=== PATIENT | male | born 1950 | race Caucasian/White ===

== ENCOUNTER 2021-01-13 10:38 | Inpatient (IN) | payer OTHER ==
[~2021-01-13] VITALS: Ht 190.5 cm; Wt 108.4 kg
[2021-01-13 10:40] VITALS: BP 117/60
[2021-01-13 11:12] LABS: ABSOLUTE NEUTROPHILS 7.5 thou/uL (1.4-8.2); BASOPHILS 0.7 % (0.0-2.0); EOSINOPHILS 0.8 % (0.0-3.0); HEMATOCRIT 44.4 % (42.0-52.0); HEMOGLOBIN 14.7 gm/dL (14.0-18.0); LYMPHOCYTES 29.8 % (24.0-44.0); MCHC 33.1 g/dL (28.0-37.0); MCV 87.5 fL (80.0-100.0); MONOCYTES 6.9 % (1.0-8.0); PLATELET COUNT 325 thou/uL (150-400); POLYS 61.8 % (36.0-66.0); RBC 5.07 mil/uL (4.50-6.00); RDW 13.3 % (10.5-14.5); WBC 12.1 thou/uL (4.0-11.0)
[2021-01-13 11:20] LABS: ANION GAP 15 mmol/L (7-16); BUN 20 mg/dL (7-18); CALCIUM 8.9 mg/dL (8.5-10.1); CHLORIDE 99 mmol/L (98-107); CO2 22 mmol/L (21-32); CREATININE 1.2 mg/dL (0.7-1.3); GLUCOSE 163 mg/dL (74-106); POTASSIUM 3.3 mmol/L (3.5-5.1); SODIUM 136 mmol/L (136-145)
[2021-01-13 11:30] LABS: MAGNESIUM 2.1 mg/dL (1.8-2.4); SGOT 16 U/L (15-37); SGPT 22 U/L (16-63); TOTAL BILIRUBIN 0.7 mg/dL (0.2-1.0); TOTAL PROTEIN 7.5 g/dL (6.4-8.2); TROPONIN-I <0.06 ng/mL (<0.06)
--- NOTE | 2021-01-13 11:47 | NUR ---
ASHLEY [id number] SON-JENNA SON-SIDNEY SON-ALEXX
[2021-01-13] MEDS ORDERED: PROTANDUM PO (12:33)
[2021-01-13] MEDS ORDERED: VITAMIN C1000 MG PO (12:34)
[2021-01-13] MEDS ORDERED: VITAMIN D31250 MCG PO (12:34)
[2021-01-13] MEDS ORDERED: ELDERBERRY-VIT1 EACH PO (12:35)
--- NOTE | 2021-01-13 13:09 | EKG ---
[address] [place] [address] ELECTROCARDIOGRAM REPORT Name: EVY MEYER Room #: 170-11 ADM IN M.R.#: [id number] Admission: 01/13/21 Attend Phys: Santosh Bowers MD Discharge: Date of : 54 Report #: [id number] [facility] ED Test Date: 2021-01-13 Test Time: 10:47:19 Pat Name: EVY MEYER Department: Room: 170 Gender: M Agent Ticketing Gate: : 1950 Requested By: Joseph Gregory Order Number: [id number] MD: Jared Croft Measurements Intervals Bruin Rate: 47 P: -37 GA: 214 QRS: -41 QRSD: 113 T: 82 QT: 464 QTc: 411 Interpretive Statements Sinus bradycardia Borderline IVCD with LAD No previous ECG available for comparison Electronically Signed On 01-13-2021 13:08:55 CDT by Jared Croft [email or web address] <ELECTRONICALLY SIGNED> By: Jared Croft MD 01/13/21 1308 [id number] MD BALWINDER Bahena
[2021-01-13 14:00] VITALS: BP 130/74
[2021-01-13 15:00] VITALS: BP 129/77
[2021-01-13 15:20] VITALS: BP 118/76
--- NOTE | 2021-01-13 15:42 | 2DMMODE ---
[facility] [address] [place] [address] 2 D/M-MODE ECHOCARDIOGRAM Name: EVY MEYER Room #: 361-P ADM IN M.R.#: [id number] Admission: 01/13/21 Attend Phys: Santosh Bowers MD Discharge: Date of : 54 Report #: [id number] THIS REPORT FOR: cc: FAM - No family physician/PCP FAM - No family physician/PCP Fabien Sanchez MD ~ APPROVED REPORT Study performed: 01/13/2021 13:22:09 EXAM: Comprehensive 2D, Doppler, and color-flow Echocardiogram Patient Location: ER Status: routine BSA: 2.35 HR: 50 bpm BP: 122/75 mmHg Rhythm: Sinus Erich Other Information Study Quality: Good Indications Bradycardia Syncope 2D Dimensions RVDd: 32.88 mm IVSd: 10.70 (7-11mm) LVOT Diam: 22.08 (18-24mm) LVDd: 55.86 mm PWd: 11.19 (7-11mm) Ascending Ao: 38.11 (22-36mm) LVDs: 37.72 (25-40mm) Left Atrium: 40.13 (27-40mm) Aortic Root: 36.41 mm Volumes Left Atrial Volume (Systole) Single Plane 4CH: 63.53 mL Single Plane 2CH: 68.17 mL LA ESV Index: 29.00 mL/m2 Aortic Valve AoV Peak Prem.: 1.39 m/s AO Peak Gr.: 7.72 mmHg LVOT Max P.41 mmHg LVOT Max V: 1.27 m/s [facility] [address] [place] [address] 2 D/M-MODE ECHOCARDIOGRAM Name: EVY MEYER Room #: 361-P [facility] IN [facility]#: [id number] Admission: 01/13/21 Attend Phys: Santosh Bowers, Discharge: Date of : 54 Report #: [id number] KASHMIR Vmax: 3.49 cm2 Mitral Valve E/A Ratio: 1.2 MV Decel. Time: 234.45 ms MV E Max Prem.: 0.65 m/s MV A Prem.: 0.55 m/s MV PHT: 67.99 ms IVRT: 87.66 ms Pulmonary Valve PV Peak Prem.: 1.13 m/s PV Peak Gr.: 5.13 mmHg Pulmonary Vein P Vein S: 0.60 m/s P Vein A: 0.29 m/s P Vein D: 0.34 m/s P Vein A Dur.: 115.3 msec P Vein S/D Ratio: 1.76 Tricuspid Valve TR Peak Prem.: 2.17 m/s RAP Estimate: 5.00 mmHg TR Peak Gr.: 19.00 mmHg PA Pressure: 24.00 mmHg Left Ventricle The left ventricle is normal size. There is normal LV segmental wall motion. There is normal left ventricular wall thickness. Left ventricular systolic function is normal. LVEF is 55-60%. The left ventricular diastolic function is normal. Right Ventricle The right ventricle is normal size. The right ventricular systolic function is normal. Atria The left atrium size is normal. The right atrium size is normal. Aortic Valve The aortic valve is normal in structure. No aortic regurgitation is present. There is no aortic valvular stenosis. Mitral Valve The mitral valve is normal in structure. Trace mitral regurgitation. No evidence of mitral valve stenosis. Tricuspid Valve [facility] [address] [place] [address] 2 D/M-MODE ECHOCARDIOGRAM Name: EVY MEYER Room #: 361-P [facility] IN .R.#: [id number] Admission: 01/13/21 Attend Phys: Santosh Bowers, Discharge: Date of : 54 Report #: [id number] The tricuspid valve is normal in structure. Trace tricuspid regurgitation. Estimated PAP is 25mmHg. Pulmonic Valve The pulmonary valve is normal in structure. There is no pulmonic valvular regurgitation. Great Vessels The aortic root is normal in size. The ascending aorta is borderline dilated. IVC is normal in size and collapses >50% with inspiration. Pericardium There is no pericardial effusion. <Conclusion> The left ventricle is normal size. There is normal left ventricular wall thickness. LVEF is 55-60%. The right ventricle is normal size. The aortic valve is normal in structure. The mitral valve is normal in structure. Trace mitral regurgitation. The tricuspid valve is normal in structure. Trace tricuspid regurgitation. Estimated PAP is 25mmHg. The pulmonary valve is normal in structure. The aortic root is normal in size. There is no pericardial effusion. <ELECTRONICALLY SIGNED> By: Fabien Sanchez MD 01/13/21 1542 [id number] Fabien Sanchez MD /INF
[2021-01-13 17:16] LABS: URINE BILIRUBIN NEGATIVE (Negative); URINE BLOOD NEGATIVE (Negative); URINE CLARITY CLEAR; URINE COLOR YELLOW; URINE GLUCOSE-RANDOM* NEGATIVE (Negative); URINE KETONES TRACE (Negative); URINE LEUKOCYTES-REFLEX NEGATIVE (Negative); URINE NITRITE-REFLEX NEGATIVE (Negative); URINE PROTEIN (DIPSTICK) NEGATIVE (Negative)
[2021-01-13 19:30] VITALS: BP 136/79
[2021-01-14 04:49] VITALS: BP 128/74
[2021-01-14 06:10] LABS: MCH 29.4 pg (26.0-34.0); MCHC 33.4 g/dL (28.0-37.0); MCV 87.9 fL (80.0-100.0); RBC 4.44 mil/uL (4.50-6.00); RDW 13.3 % (10.5-14.5); WBC 7.3 thou/uL (4.0-11.0)
[2021-01-14 06:40] LABS: CALCIUM 8.3 mg/dL (8.5-10.1); MAGNESIUM 2.1 mg/dL (1.8-2.4); POTASSIUM 4.1 mmol/L (3.5-5.1)
[2021-01-14 07:39] VITALS: BP 121/72
--- NOTE | 2021-01-14 07:44 | NUR ---
PT MAKING PROGRESS TOWARDS GOALS. PT HAS DENIED ANY DIZZINESS OVERNIGHT. DID STATE THAT HE WOULD FEEL DIZZY INSTANTLY WHEN HE WOULD TURN HIS HEAD. "MAYBE I WAS JUST A LITTLE DEHYDRATED." CONTINUE TO MONITOR.
--- NOTE | 2021-01-14 08:34 | NUR ---
care assumed this am, pt alert and oriented x4, denies any chest pain, dizziness or syncope. pt on room air, no signs of distress noted. planning on going for stress tet this AM. Denies any needs, will continue alexsandra moniotr
[2021-01-14 11:24] VITALS: BP 152/88
--- NOTE | 2021-01-14 13:00 | NUR ---
ASSESSMENT: CM REVIEWED CHART AND MET WITH PATIENT. PT IS ALERT AND ORIENTED X4. PT WAS ADMITTED DUE TO VERTIGO, SYNCOPE, AND BRADYCARDIA. PT HAD STRESS TEST TODAY THAT WAS POSITIVE SO HE IS TO HAVE A HEART CATH TOMORROW AM. PT REPORTS THAT HE LIVES IN A HOUSE BY HIMSELF. PT REPORTS NO STEPS TO ENTER THE HOME BUT REPORTS HAVING HIS LAUNDRY IN THE BASEMENT WITH A FULL FLIGHT OF STEPS AND HANDRAILS. PT REPORTS BEING FULLY INDEPENDENT WITH ADLS AND AMBULATION. PT REPORTS HE HAS NO HX OF OR SNF BUT HAS DONE OUTPATIENT PHYSICAL THERAPY IN THE PAST. CM DISCUSSED ROLE. PT IS HOPEFUL HE WILL RETURN HOME WITH NO NEEDS. CM WILL CONTINUE TO FOLLOW TO ASSIST NEEDED.
[2021-01-14 16:06] VITALS: BP 143/95
[2021-01-14 18:58] VITALS: BP 130/85
[2021-01-15] VITALS (13 sets, daily range): BP systolic 128–156; BP diastolic 78–98
--- NOTE | 2021-01-15 05:11 | NUR ---
PT MAKING PROGRESS TOWARDS GOALS. HAS DENIED ANY DIZZINESS OR NAUSEA THROUGHOUT THE NIGHT. PT STATING THAT HE WAS NOT MADE AWARE THAT HE MAY NEED A STENT PLACED WHEN THE PERFORM THE CARDIAC CATH. HE REPORTEDLY TOLD THE DAY RN THAT HE WANTS TO SPEAK WITH DR. VAN ONE MORE TIME BEFORE THE PROCEDURE AND BEFORE HE SIGNS THE CONSENT.
--- NOTE | 2021-01-15 10:51 | NUR ---
PT BACK FROM LEVEL VIAL SETTER, NO INTERVENTIONS WERE DONE. PT ON BEDREST FOR 3 HOURS. VITALS DONE PER ORDER. RIGHT GROIN SITE, CLEAN, DRY AND INTACT, SOFT AND FREE OF HEMATOM
[2021-01-15 13:57] LABS: CHOLESTEROL 181 mg/dL (<200); HDL CHOLESTEROL 49 mg/dL (>40); LDL CHOLESTEROL 98 mg/dL (<100); TC:HDL 3.7 Ratio (Not establshd); TRIGLYCERIDE 174 mg/dL (<150); VLDL 35 mg/dL (<40)
[2021-01-15] MEDS ORDERED: COZAAR 25 MG TA25 M1 PO (14:08)
[2021-01-15] MEDS ORDERED: BAYER CHEWABLE81 MG PO (14:08)
[2021-01-15] MEDS ORDERED: LIPITOR20 MG PO (14:09)
--- NOTE | 2021-01-15 14:14 | NUR ---
DISCHARGE NOTE: SW reviewed chart and spoke with nursing and attending physician. Pt went to cardiac laborer pole crew this morning. No interventions needed. Pt is medically stable to discharge home today. No SW needs identified at this time. SW is available to assist should needs arise.
--- NOTE | 2021-01-26 22:09 | CATHLAB ---
[facility] [address] [place] [address] INVASIVE PROCEDURE REPORT Name: EVY MEYER Room #: 361-P [facility] IN M.R.#: [id number] Admission: 01/13/21 Attend Phys: Santosh Bowers MD Discharge: 01/15/21 Date of : 54 Report #: [id number] THIS REPORT FOR: cc: FAM - No family physician/PCP FAM - No family physician/PCP Fabien Sanchez MD ~ APPROVED REPORT Study performed: 01/15/2021 08:41:05 Patient Details Patient Status: Out-Patient Room #: The patient is a 70 year-old male Event Personnel Fabien Sanchez Retail Coverage Merchandiser Lead, Imer Barrett RN RN, Lanny Blair RTR Scrub, Bacilio Dunne RTR Monitor Procedures Performed Art Access - R femoral artery* Left Heart Cath w/or w/o Coronaries [id number] [facility] Hemostasis with Manual pressure 00158 Initial Mod Sed Same Phys/QHP Gr5y [id number] Mod Sed Same Phys/QHP Ea [id number], superevision of conscious sedaion Indication Dizziness and vertigo, Positive stress test Procedure Narrative The Right Groin^ was infiltrated with 1% Lidocaine subcutaneous anesthesia. A PINNACLE 4FR Sheath #[id number] sheath was inserted into the RFA^. Coronary angiography was performed using coronary diagnostic catheters. The right coronary system was accessed and visualized with a JR4 catheter. The left coronary system was accessed and visualized with a JL4 catheter. The left ventricle was accessed and visualized with a PIGTAIL catheter. Left ventricular/Aortic Valve gradient assessed via catheter pullback. Hemostasis was obtained with manual pressure following sheath removal without any complications. The patient tolerated the procedure well and there were no complications associated with the procedure. There was no hematoma. Intraoperative Conscious Sedation Sedation start time: 933 Case end Time: [address] [facility] [address] [place] [address] INVASIVE PROCEDURE REPORT Name: EVY MEYER Room #: 361-P [facility] IN M.R.#: [id number] Admission: 01/13/21 Attend Phys: Santosh Bowers, Discharge: 01/15/21 Date of : 54 Report #: [id number] Versed mg Fluoro Time: 2.40 minutes Dose: DAP 6178.80 cGycm2 998 mGy Contrast Type and Amount: Omnipaque 80 ml Coronary Angiography The patient's coronary anatomy is right dominant. Diagnostic Cath Left Main Moderate caliber vessel of normal origin bifurcates into Left anterior descending and left circumflex arteries. The left main demonstrates some mild plaquing but no significant obstructive lesions. LAD MOderate caliber type II vessel which rapidly tapers as it courses in the anterior interventricular sulcus giving rise to septal and diagonal branches. the LAD proprer has diffuse mild to moderate plaquing but no high grade lesions are present. Diagonal 1 diminuitive caliber vessel without high grade lesions Diagonal 2 diminuitive size vessel without obstructive lesions Circumflex moderate caliber vessel with a mild ostial lesion. the vessel continues in the AV groove when it give rise to a moderate marginal branch which further bifurcate and had a 50% lesion in its distal third. OM1 moderate caliber vessel ith a moderate mid vessel lesion OM2 small to moderate vessel without significant lesion Right Coronary large caliber vessel of normal origin continues in AV groove to the acute margin where rv/ra branches arise R PDA small caliber vessel with at least 50% proximal lesion in present. the vessel continues towards the apex RPLV moderate caliber vessel extending toweards apex without significant lesions Left Ventriculography Left Ventriculography was not performed. Hemodynamics The aortic pressure is 147/72 mmHg with a mean of 105 mmHg. The left ventricular pressure is 155/10 mmHg with a mean of mmHg. The left ventricular end diastolic pressure is 14 mmHg. Pullback from the left ventricle to the aorta revealed a mm gradient across the aortic valve. [facility] [address] [place] [address] INVASIVE PROCEDURE REPORT Name: EVY MEYER Room #: 361-P [facility] IN M.R.#: [id number] Admission: 01/13/21 Attend Phys: Santosh Bowers, Discharge: 01/15/21 Date of : 54 Report #: [id number] Conclusion 1. 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 Normal hemodynamics Recommendations Aggressive Medical Therapy Medical Therapy <ELECTRONICALLY SIGNED> By: Fabien Sanchez MD 01/26/212208 08 08 Fabien Sanchez MD /INF
== END 2021-01-15 17:16 | disposition home or self-care (01) | DRG 287 ==
LOC: ER 10:38 → 3W 12:56 → EROBS 12:56 → 3W 15:00
PROVIDERS: Emergency Medicine; ADMIT Internal Medicine; ATTEND Internal Medicine
PROC: 4A023N7 Measurement of Cardiac Sampling and Pressure, Left Heart, Percutaneous Approach (ICD-10-PCS; principal; 2021-01-15)
PROC: B2111ZZ Fluoroscopy of Multiple Coronary Arteries using Low Osmolar Contrast (ICD-10-PCS; principal; 2021-01-15)
DX: I25.10 Atherosclerotic heart disease of native coronary artery without angina pectoris (principal); E87.6 Hypokalemia; G62.9 Polyneuropathy, unspecified; Z82.49 Family history of ischemic heart disease and other diseases of the circulatory system; Z79.82 Long term (current) use of aspirin; Z79.899 Other long term (current) drug therapy; R00.1 Bradycardia, unspecified
CPT/HCPCS: 10879